=== PATIENT | female | born 1945 | race Asian ===

== ENCOUNTER 2017-11-17 13:42 | Inpatient (IN) | payer MEDICARE, MEDICAID ==
[~2017-11-17] VITALS: Ht 157.5 cm; Wt 54.4 kg
[2017-11-17 13:50] VITALS: BP 93/70
[2017-11-17] MEDS ORDERED: Isovue-300 100ml vial INJ PRN (14:00)
[2017-11-17] MEDS ORDERED: LORazepam Inj 2mg/ml 1ml IV ONE (14:00)
[2017-11-17 14:21] LABS: BASOPHILS % (AUTO) 1.6 % (0.0-2.0); EOSINOPHILS % (AUTO) 1.3 % (0.0-3.0); HEMATOCRIT 46.4 % (37.0-47.0); HEMOGLOBIN 14.9 G/DL (12.0-16.0); LYMPHOCYTES % (AUTO) 23.6 % (20.0-45.0); MEAN CORPUSCULAR VOLUME 94 FL (80-99); MONOCYTES % (AUTO) 5.9 % (1.0-10.0); NEUTROPHILS % (AUTO) 67.5 % (45.0-75.0); PLATELET COUNT 178 K/UL (150-450); RED BLOOD COUNT 4.96 M/UL (4.20-5.40); RED CELL DISTRIBUTION WIDTH 11.9 % (11.6-14.8); WHITE BLOOD COUNT 7.2 K/UL (4.8-10.8)
--- NOTE | 2017-11-17 14:22 | Emergency Room Report ---
History of Present Illness General Chief Complaint: Abdominal Pain Source: Patient, EMS Present Illness HPI 72-year-old female presents ED complaining of abdominal, dizziness. States symptoms started today. Pain is sharp, epigastric, 7 out of 10, radiating to lower abdomen. Denies chest pain or shortness of breath. Denies fevers or chills. States she does have history of irregular heart rate and takes medications but does not know the name of them. No other aggravating relieving factors. Denies any other associated symptoms. states she sometimes has this pain when she gets stressed Allergies: Coded Allergies: No Known Allergies (Unverified , 11/17/17) Patient History Past Medical History: HTN, AFib, other - bowel obstruction Past Surgical History: none Pertinent Family History: none Social History: Denies: smoking, alcohol use, drug use Last Menstrual Period: NA Now: No Immunizations: UTD Reviewed Nursing Documentation: PMH: Agreed; PSxH: Agreed Nursing Documentation-PMH Past Medical History: No History, Except For Hx Cardiac Problems: Yes - Afib Hx Hypertension: Yes Hx Gastrointestinal Problems: Yes - Bowel obstruction Review of Systems All Other Systems: negative except mentioned in HPI Physical Exam Vital Signs Date Time Temp Pulse Resp B/P (MAP) Pulse Ox O2 Delivery O2 Flow Rate FiO2 11/17/17 13:34 97.7 124 20 93/70 97 Room Air 97.7 Sp02 EP Interpretation: reviewed, normal General Appearance: no apparent distress, alert, GCS 15, non-toxic Head: normocephalic, atraumatic Eyes: bilateral eye normal inspection, bilateral eye PERRL ENT: hearing grossly normal, normal pharynx, no angioedema, normal voice Neck: full range of motion, supple/symm/no masses Respiratory: chest non-tender, lungs clear, normal breath sounds, speaking full sentences Cardiovascular #1: no edema, tachycardia Cardiovascular #2: 2+ carotid (R), 2+ carotid (L), 2+ radial (R), 2+ radial (L) , 2+ dorsalis pedis (R), 2+ dorsalis pedis (L) Gastrointestinal: normal bowel sounds, soft, non-distended, no guarding, no rebound, tenderness - epigastric Rectal: deferred Genitourinary: normal inspection, no CVA tenderness Musculoskeletal: back normal, gait/station normal, normal range of motion, non- tender Neurologic: alert, oriented x3, responsive, motor strength/tone normal, sensory intact, speech normal Psychiatric: judgement/insight normal, memory normal, mood/affect normal, no suicidal/homicidal ideation Reflexes: 3+ bicep (R), 3+ bicep (L), 3+ tricep (R), 3+ tricep (L), 3+ knee (R) , 3+ knee (L) Skin: normal color, no rash, warm/dry, well hydrated Lymphatic: no adenopathy Medical Decision Making Diagnostic Impression: Primary Impression: Atrial fibrillation with rapid ventricular response Additional Impressions: Renal insufficiency UTI (urinary tract infection) ER Course Hospital Course 72-year-old F presents ED complaining of dizziness, abd pain Differential diagnoses include: NM/unstable angina, contusion, muscle strain, PTX, rib fracture, pneumonia, Clinical course Patient placed on stretcher. on manager cardiac which shows A. fib with RVR. After initial history and physical I ordered labs, EKG, chest x-ray, IVFs, ativan labs reviewed- no leukocytosis, hemoglobin/hematocrit ok, Cr 1.5, troponins negative, ua + bacteria EKG - afib with RVR, no acute ishcemic changes interpreted by me Chest x-ray- atelectasis, hyeprinflated lungs CT A/P - enteritis abx given. given lopressor x [address] Mcdonald and he agreed to accept the patient to his service for further care and support I. I feel this is a highly complex case requiring extensive working including EKG/Rhythm strip, Xray/CT/US, Blood/urine lab work, repeat exams while in ED, and administration of strong opiates/narcotics for pain control, admission to hospital or close patient follow up. Diagnosis - afib,renal insuffiiency, UTI admitted to telemetry in serious condition Labs Test 11/17/17 14:05 White Blood Count 7.2 K/UL (4.8-10.8) Red Blood Count 4.96 M/UL (4.20-5.40) Hemoglobin 14.9 G/DL (12.0-16.0) Hematocrit 46.4 % (37.0-47.0) Mean Corpuscular Volume 94 FL (80-99) Mean Corpuscular Hemoglobin 30.1 PG (27.0-31.0) Mean Corpuscular Hemoglobin Concent 32.2 G/DL (32.0-36.0) Red Cell Distribution Width 11.9 % (11.6-14.8) Platelet Count 178 K/UL (150-450) Mean Platelet Volume 7.6 FL (6.5-10.1) Neutrophils (%) (Auto) 67.5 % (45.0-75.0) Lymphocytes (%) (Auto) 23.6 % (20.0-45.0) Monocytes (%) (Auto) 5.9 % (1.0-10.0) Eosinophils (%) (Auto) 1.3 % (0.0-3.0) Basophils (%) (Auto) 1.6 % (0.0-2.0) Prothrombin Time 11.4 SEC (9.30-11.50) Prothromb Time International Ratio 1.1 (0.9-1.1) Activated Partial Thromboplast Time 26 SEC (23-33) Urine Color Yellow Urine Appearance Slightly cloudy Urine pH 5 (4.5-8.0) Urine Specific [place] 1.020 (1.005-1.035) Urine Protein 3+ (NEGATIVE) Urine Glucose (UA) Negative (NEGATIVE) Urine Ketones 1+ (NEGATIVE) Urine Occult Blood 4+ (NEGATIVE) Urine Nitrite Negative (NEGATIVE) Urine Bilirubin Negative (NEGATIVE) Urine Urobilinogen 1 MG/DL (0.0-1.0) Urine Leukocyte Esterase 2+ (NEGATIVE) Urine RBC 5-10 /HPF (0 - 2) Urine WBC 10-15 /HPF (0 - 2) Urine Squamous Epithelial Cells Many /LPF (NONE/OCC) Urine Bacteria Few /HPF (NONE) Sodium Level 141 MMOL/L (136-145) Potassium Level 3.9 MMOL/L (3.5-5.1) Chloride Level 106 MMOL/L (98-107) Carbon Dioxide Level 27 MMOL/L (21-32) Anion Gap 8 mmol/L (5-15) Blood Urea Nitrogen 16 mg/dL (7-18) Creatinine 1.5 MG/DL (0.55-1.30) Estimat Glomerular Filtration Rate mL/min (>60) Glucose Level 156 MG/DL (74-106) Calcium Level 9.5 MG/DL (8.5-10.1) Total Bilirubin 0.7 MG/DL (0.2-1.0) Aspartate Amino Transf (AST/SGOT) 14 U/L (15-37) Alanine Aminotransferase (ALT/SGPT) 22 U/L (12-78) Alkaline Phosphatase 93 U/L (46-116) Troponin I 0.003 ng/mL (0.000-0.056) Total Protein 7.2 G/DL (6.4-8.2) Albumin 3.6 G/DL (3.4-5.0) Globulin 3.6 g/dL Albumin/Globulin Ratio 1.0 (1.0-2.7) Lipase 234 U/L (73-393) EKG Diagnostic Results Rate: tachycardiac Rhythm: other - afib with RVR ST Segments: no acute changes ASA given to the pt in ED: No Rhythm Strip Diag. Results EP Interpretation: yes Rhythm: no PVC's, no ectopy Chest X-Ray Diagnostic Results Chest X-Ray Diagnostic Results : Chest X-Ray Ordered: Yes # of Views/Limited/Complete: 1 View Indication: Other - dizziness EP Interpretation: Yes Interpretation: no consolidation, no effusion, no pneumothorax, other - hyperinflated lungs. atelectasis Impression: Other - copd Electronically Signed by: Electronically signed by Jerod Agosto MD CT/MRI/US Diagnostic Results CT/MRI/US Diagnostic Results : Imaging Test Ordered: CT A/P Impression enteritis Last Vital Signs Date Time Temp Pulse Resp B/P (MAP) Pulse Ox O2 Delivery O2 Flow Rate FiO2 11/17/17 13:50 97.7 20 93/70 97 Room Air 97.7 11/17/17 13:34 124 Status: improved Disposition: ADMITTED INPATIENT Condition: Serious Scripts Unable to Obtain Active Prescriptions or Reported Meds Jerod Agosto MD Nov 17, 2017 14:22
[2017-11-17 14:27] LABS: APPEARANCE,URINE SLIGHTLY CLOUDY; BILIRUBIN, URINE NEGATIVE (NEGATIVE); GLUCOSE, URINE (UA) NEGATIVE (NEGATIVE); KETONES,URINE 1+ (NEGATIVE); LEUKOCYTE ESTERASE ,URINE 2+ (NEGATIVE); NITRITE,URINE NEGATIVE (NEGATIVE); PH,URINE 5 (4.5-8.0); PROTEIN,URINE 3+ (NEGATIVE); UROBILINOGEN,URINE 1 MG/DL (0.0-1.0)
[2017-11-17 14:33] LABS: ANION GAP 8 mmol/L (5-15); BLOOD UREA NITROGEN 16 mg/dL (7-18); CALCIUM 9.5 MG/DL (8.5-10.1); CARBON DIOXIDE 27 MMOL/L (21-32); CHLORIDE 106 MMOL/L (98-107); CREATININE 1.5 MG/DL (0.55-1.30); POTASSIUM 3.9 MMOL/L (3.5-5.1); SODIUM 141 MMOL/L (136-145)
[2017-11-17 14:39] LABS: ALANINE AMINOTRANSFERASE 22 U/L (12-78); ALBUMIN 3.6 G/DL (3.4-5.0); ALKALINE PHOSPHATASE 93 U/L (46-116); ASPARTATE AMINO TRANSFERASE 14 U/L (15-37); BILIRUBIN,TOTAL 0.7 MG/DL (0.2-1.0); INR 1.1 (0.9-1.1)
[2017-11-17 14:41] LABS: COLOR,URINE YELLOW
[2017-11-17] MEDS ORDERED: cefTRIAXone 1 GM in NS 55 ML IVPB ONE (15:00)
--- NOTE | 2017-11-17 15:28 | Diagnostic Imaging Report ---
EXAM: XR Chest, 1 View CLINICAL HISTORY: ABD PAIN TECHNIQUE: Frontal view of the chest. COMPARISON: No relevant prior studies available. FINDINGS: Lungs: Hyperexpanded lungs of COPD.. Mild bibasilar lung atelectasis and/or mild chronic linear markings at the lower lungs. Pleural space: Unremarkable. No pneumothorax. Heart: Unremarkable. No cardiomegaly. Mediastinum: Unremarkable. Bones/joints: Unremarkable. IMPRESSION: 1. Hyperexpanded lungs of COPD. 2. No acute process.
[2017-11-17 15:31] VITALS: BP 119/76
--- NOTE | 2017-11-17 15:43 | Diagnostic Imaging Report ---
EXAM: CT Abdomen and Pelvis With Intravenous Contrast CLINICAL HISTORY: Epigastric ABD PAIN TECHNIQUE: Axial computed tomography images of the abdomen and pelvis with intravenous contrast. CTDI is 12.1 mGy and DLP is 629 mGy-cm. One or more of the following dose reduction techniques were used: automated exposure control, adjustment of the mA and/or kV according to patient size, use of iterative reconstruction technique. COMPARISON: No relevant prior studies available. FINDINGS: Lung bases: Mild bibasilar lung atelectasis. ABDOMEN: Liver: Unremarkable. No mass. Gallbladder and bile ducts: Cholecystectomy. Slightly prominent CBD likely sequela of cholecystectomy. Pancreas: Unremarkable. No mass. No ductal dilation. Spleen: Unremarkable. No splenomegaly. Adrenals: Unremarkable. No mass. Kidneys and ureters: Unremarkable. No solid mass. No hydronephrosis. Stomach and bowel: Mild gaseous small bowel loops may be mild enteritis with ileus. No bowel obstruction. PELVIS: Appendix: No findings to suggest acute appendicitis. Bladder: Unremarkable. No mass. Reproductive: Uterus and adnexa unremarkable. ABDOMEN and PELVIS: Intraperitoneal space: Unremarkable. No free air. No significant fluid collection. Bones/joints: Degenerative changes spine. Grade 1 anterolisthesis of L3 on L4 likely degenerative. No acute fracture. No dislocation. Soft tissues: Unremarkable. Vasculature: Atherosclerotic vascular disease. Ectatic sections of the abdominal aorta. No abdominal aortic aneurysm. Lymph nodes: Unremarkable. No enlarged lymph nodes. IMPRESSION: 1. Cholecystectomy. Slightly prominent CBD likely sequela of cholecystectomy. 2. Mild gaseous small bowel loops may be mild enteritis with ileus. No bowel obstruction.
[2017-11-17] MEDS ORDERED: Metoprolol 5mg/5ml Inj IVP SCH (16:30)
--- NOTE | 2017-11-17 18:04 | History & Physical ---
History and Physical History & Physicial 72-year-old female presents with some abdominal pain and dizziness. Patient notes symptoms are acute. Pain is described as sharp, epigastric, region with some radiation. Denies chest pain or shortness of breath. Denies fevers or chills. Notes she has irregular heart rate. Denies any other associated symptoms. Patient noted to have rapid afib in the ER and still tachycardic when seen. CT with enteritis Allergies: No Known Allergies (Unverified , 11/17/17) Past Medical History: HTN, AFib, bowel obstruction Past Surgical History: none Pertinent Family History: none Social History: Denies: smoking, alcohol use, drug use, retired Reviewed of systems: difficult to obtain history Physical WDWN NAD clear breath sounds bilaterally without rhonchi or wheeze S1S2 iRR and tachy without MRG NABS mild diffuse tenderness no CCE alert nonfocal vitals see attached IMPRESSION afib with RVR abdominal pain enteritis possible ACS acute renal failure hyperglycemia PLAN IV hydration amio cardizem card gi monitor exam protonix DVT prophylaxis impression, plan, and exam edited and reviewed in detail care discussed with Dayne Gonzalez MD Nov 17, 2017 18:04
[2017-11-17] MEDS ORDERED: Milk of Magnesia 30ml Ud ORAL PRN (18:30)
[2017-11-17 20:00] VITALS: BP 134/0
[2017-11-17] MEDS: Amiodarone 200mg tab ORAL SCH ×2 (20:03→20:49)
[2017-11-17] MEDS: Heparin 5000 units/ml inj SUBQ SCH ×2 (20:04→20:48)
--- NOTE | 2017-11-17 23:45 | Consultation ---
DATE OF CONSULTATION: 11/17/2017 CARDIOLOGY CONSULTATION CONSULTING PHYSICIAN: David Vang M.D. REQUESTING PHYSICIAN: Dayne Mcdonald M.D. REASON FOR CONSULTATION: Rapid atrial fibrillation. HISTORY OF PRESENT ILLNESS: This 72-year-old [place] female presented to the emergency room with one-day history of abdominal pain and associated dizziness. She notes it as a sharp epigastric discomfort with radiation to her back. She denies chest pain or shortness of breath. She has not had fevers, chills, nausea, or vomiting. She was noted to have rapid atrial fibrillation in the emergency room. The patient notes a history of irregular heartbeats and cannot recall the name of her baseline medications. Diagnostic workup in the emergency room included an EKG revealing atrial fibrillation, rapid ventricular response, and nonspecific ST-T wave changes. Chest x-ray with atelectasis and hyperinflation. CT of the abdomen and pelvis revealing enteritis. Urinalysis with 10 to 15 white cells. Sodium 141, potassium 3.9, bicarb 27, BUN 16, creatinine 1.5, and glucose 156. Troponin 0.003. Albumin 3.6. White count 7.2 and hemoglobin 14.9. INR 1.1. PAST MEDICAL HISTORY: Includes hypertension, atrial fibrillation, and history of prior bowel obstruction. MEDICATIONS: Prior to admission, the patient cannot recall. ALLERGIES: None known. SOCIAL HISTORY: Denies smoking, alcohol, or substance abuse. REVIEW OF SYSTEMS: Otherwise cannot be obtained. Pertinent data available, information with help of a computer systems auditor as outlined above. PHYSICAL EXAMINATION: VITAL SIGNS: Blood pressure initially 93/70, heart rate 124, and respiratory rate 20. She is afebrile. Presently, blood pressure 119/76 and room air oxygen saturations are 97% to 99%. HEENT: Conjunctivae pink. Sclerae are anicteric. Oropharynx clear. NECK: Supple. Jugular venous pressure grossly normal. LUNGS: Clear breath sounds. CARDIAC: Irregularly irregular. Rapid rate. Normal S1, S2. A 1/6 systolic murmur at apex. ABDOMEN: Soft. Mild tenderness diffusely. No guarding or rebound. EXTREMITIES: Good pulses. No clubbing or cyanosis. No edema. She is nontoxic. NEUROLOGIC: Nonfocal. LABORATORY DATA: As outlined. IMPRESSION: 1. Acute colitis. 2. History of atrial fibrillation now with rapid ventricular response. 3. Acute kidney injury likely due to hypovolemia and hyperglycemia suggesting the possibility of underlying diabetes mellitus. RECOMMENDATIONS: 1. Antibiotics. 2. Hydration with IV fluids. 3. Beta-celine for rate control. 4. Cardioembolic prophylaxis with IV heparin. 5. No amiodarone at this time as the patient gives a history of chronic fibrillation and it does not appear that she has been anticoagulated previously. 6. Observe for bleeding complications. 7. Serial blood counts. 8. Troponin levels and trending of natriuretic peptide assay. 9. Echocardiogram will be obtained and we will attempt to obtain outside medication list. David Vang M.D. DR: MIAN JOB#: [id number] CC:
[2017-11-18] MEDS ORDERED: dilTIAZem HCl 30mg tab ORAL SCH
[2017-11-18] MEDS ORDERED: Pantoprazole Inj IVP SCH (09:00)
--- NOTE | 2017-11-18 14:19 | Cardiology Report ---
APPROVED REPORT EKG Measurement Heart [id number] Atrial fibrillation with rapid ventricular response Nonspecific T wave abnormality Abnormal ECG
[2017-11-18] MEDS ORDERED: D5W IVPB SCH (15:00)
[2017-11-18] MEDS ORDERED: CEFEPIME HCL IVPB SCH (15:00)
--- NOTE | 2017-11-19 14:18 | Discharge Summary ---
Discharge Summary Discharge Summary _ DATE OF ADMISSION: 11/17/2017 DATE OF DISCHARGE: 11/17/2017. Patient signed AMA REASON FOR ADMISSION: 72 years old female with past medical history of hypertension ,atrial fibrillation , bowel obstruction, presented to emergency room complaining of abdominal pain and dizziness. Symptoms started the same day. Pain described as sharp, epigastric, 7 out of 10 , radiating to lower abdomen. She denied chest pain and shortness of breath. She denied fever and chills. Upon evaluation vital signs reveled tachycardia-124.ECG revealed atrial fibrillation with rapid ventricular response. Chest x-ray revealed COPD changes but showed no acute cardiopulmonary pathology. CT of the abdomen and pelvis revealed possible mild enteritis with ileus, but no bowel obstruction. Laboratory workup revealed no leukocytosis, stable hemoglobin and hematocrit. Stable LFT, electrolytes. Troponin negative. Creatinine 1.5. Glucose 156 Urinalysis revealed +3 protein , +4 occult blood, positive for leukocyte esterase, pyuria , but only few bacteria Patient admitted with diagnoses of atrial fibrillation with rapid ventricular response, abdominal pain ,enteritis ,possible acute coronary syndrome ,acute kidney injury, hyperglycemia. 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 Patient started on IV hydration. Heart rate was controlled with amiodarone and Cardizem. Beta celine was on board as needed. Cardiology and GI evaluations were requested. Patient started on PPI DVT prophylaxis provided. Renal parameters and electrolytes were closely monitored . Serial troponin were ordered Patient decided to sign AGAINST MEDICAL ADVICE The risks and consequences of signing AGAINST MEDICAL ADVICE were discussed with patient in detail. Patient verbalized understanding, nevertheless signed AMA form and left. FINAL DIAGNOSES: Atrial fibrillation with rapid ventricular response enteritis acute kidney injury/acute renal failure hyperglycemia abdominal pain I have been assigned to dictate discharge summary for this account. I was not involved in the patient's management. Sheri Connor NP Nov 19, 2017 14:18
== END 2017-11-17 20:35 | disposition left against medical advice (07) | DRG 309 ==
LOC: EDBD 13:42 → EMR 14:35 → 2E 14:45 → EDBEDREQ 15:06
DX: I48.91 Unspecified atrial fibrillation (principal); N17.9 Acute kidney failure, unspecified; K52.9 Noninfective gastroenteritis and colitis, unspecified; R73.9 Hyperglycemia, unspecified; R10.9 Unspecified abdominal pain; I10 Essential (primary) hypertension
CPT/HCPCS: 36415; 71045; 74176; 80053; 81003; 83690; 84484; 85025; 85610; 85730; 87086; 93005